=== PATIENT | male | born 1980 | race Caucasian/White ===

== ENCOUNTER 2019-09-17 21:35 | Emergency (ER) | payer SELFPAY ==
[2019-09-17 21:56] LABS: ABSOLUTE BASOPHILS # (AUTO) 0.1 10^3/uL (0.0-0.2); ABSOLUTE LYMPHOCYTES (AUTO) 0.9 10^3/uL (0.5-4.7); ABSOLUTE MONOCYTES (AUTO) 0.8 10^3/uL (0.1-1.4); BASOPHILS % (AUTO) 0.6 % (0-2); HEMATOCRIT 37.8 % (37.9-51.0); HEMOGLOBIN 12.9 g/dL (13.5-17.0); LYMPHOCYTES % (AUTO) 6.3 % (13-45); MEAN CORPUSCULAR HEMOGLOBIN 32.1 pg (27.0-33.4); MEAN CORPUSCULAR HGB CONC 34.2 g/dL (32.0-36.0); MEAN CORPUSCULAR VOLUME 94 fl (80-97); MONOCYTES % (AUTO) 5.9 % (3-13); PLATELET COUNT 319 10^3/uL (150-450); RED BLOOD COUNT 4.03 10^6/uL (4.35-5.55); RED CELL DISTRIBUTION WIDTH 13.6 % (11.5-14.0); SEGMENTED NEUTROPHILS % (AUTO) 87.2 % (42-78); TOTAL CELLS COUNTED % (AUTO) 100 %; WHITE BLOOD COUNT 13.8 10^3/uL (4.0-10.5)
[2019-09-17] MEDS ORDERED: NORMAL SALINE 1000 ML 1,000 ML IV ONE (22:02)
[2019-09-17 22:08] LABS: ALBUMIN 5.1 g/dL (3.5-5.0); ALKALINE PHOSPHATASE 87 U/L (38-126); ANION GAP 18 (5-19); ASPARTATE AMINO TRANSFERASE 39 U/L (17-59); BILIRUBIN,TOTAL 0.6 mg/dL (0.2-1.3); BLOOD UREA NITROGEN 33 mg/dL (7-20); CARBON DIOXIDE 18 mmol/L (22-30); CHLORIDE 106 mmol/L (98-107); GLUCOSE 107 mg/dL (75-110); POTASSIUM 3.8 mmol/L (3.6-5.0); TOTAL PROTEIN 8.3 g/dL (6.3-8.2)
[2019-09-17 22:17] LABS: ALCOHOL < 10 mg/dL (NONE DETECTED)
--- NOTE | 2019-09-17 23:34 | RADIOLOGY REPORT (SQ) ---
CLINICAL INDICATION: ams. TECHNIQUE: A single portable AP view was obtained of the chest at 2317 hours. COMPARISON: None. FINDINGS: The cardiomediastinal silhouette is normal. The lungs are grossly clear. No evidence of effusion or pneumothorax. The visualized bones are unremarkable. Lungs of low volume IMPRESSION: No evidence of active intrathoracic disease.
--- NOTE | 2019-09-17 23:36 | RADIOLOGY REPORT (SQ) ---
INDICATION: ams. Mental status change COMPARISON: None CORRELATION: None TECHNIQUE: Noncontrast spiral axial CT images were obtained from the skull base to vertex. This exam was performed according to our departmental dose-optimization program, which includes automated exposure control, adjustment of the mA and/or kV according to patient size and/or use of iterative reconstruction techniques. FINDINGS: There is no evidence of acute intracranial hemorrhage, midline shift, mass effect or mass lesion. Abernathy-white differentiation is normal. There is no evidence of acute large territory infarct. Ventricles and extracerebral spaces are within normal limits, for age. The visualized paranasal sinuses are grossly clear. The orbits and eyeballs are unremarkable. The mastoid air cells are clear. Skull base and calvarium appear intact. IMPRESSION: No acute intracranial process is identified. The cause of the patient's mental status change is not identified on this examination.
[2019-09-17 23:58] LABS: APPEARANCE,URINE CLEAR; BILIRUBIN,URINE NEGATIVE (NEGATIVE); COLOR,URINE YELLOW; GLUCOSE, URINE NEGATIVE (NEGATIVE); KETONES,URINE NEGATIVE (NEGATIVE); LEUKOCYTE ESTERASE,URINE NEGATIVE (NEGATIVE); NITRITE,URINE NEGATIVE (NEGATIVE); PROTEIN,URINE 30 mg/dL (NEGATIVE); URINE SPECIFIC GRAVITY 1.015; UROBILINOGEN,URINE NEGATIVE mg/dL (<2.0)
--- NOTE | 2019-09-18 | ER Document Report ---
Entered by SAMUEL SUN SCRIBE 09/17/19 1298 Acting as scribe for:ROBERTO GEORGE IV, MD ED General - General Chief Complaint: Altered Mental Status Stated Complaint: POSSIBLE SYNCOPE Time Seen by Provider: 09/17/19 21:42 Mode of Arrival: Medic Information source: Emergency Med Personnel Cannot obtain history due to: Altered mental status Notes: This 39 year old male patient brought in by EMS presents to the ED today with complaints of altered mental status. Per ED nurse, [facility] was called because the patient was reportedly walking around and rolling on the ground. Upon EMS arrival, patient was exhibiting the same behavior and was nonverbal. HPI is limited, and PMHx/ROS are unobtainable due to the patient's medical condition. Past Medical History - General Cannot obtain history due to: Altered mental status - Social History Smoking Status: Unknown if Ever Smoked Family History: Reviewed & Not Pertinent Patient has homicidal ideation: - pt unable to complete Review of Systems - Review of Systems -: Yes ROS unobtainable due to patient's medical condition Physical Exam - Vital signs Vitals: Resp BP Pulse Ox 25 H 158/94 H 95 09/17/19 21:43 09/17/19 21:43 09/17/19 21:43 - General General appearance: Other - Appears disheveled In distress: None - HEENT Head: Normocephalic, Atraumatic Eyes: Normal Pupils: Dilated - Respiratory Respiratory status: No respiratory distress Chest status: Nontender Breath sounds: Normal Chest palpation: Normal - Cardiovascular Rhythm: Regular, Tachycardia Heart sounds: Normal auscultation Murmur: No Friction rub: No Gallop: None auscultated - Abdominal Inspection: Normal Distension: No distension Bowel sounds: Normal Tenderness: Nontender - Abdomen soft Organomegaly: No organomegaly - Back Back: Normal, Nontender - Extremities General upper extremity: Normal inspection General lower extremity: Normal inspection - Neurological [place] Coma Scale Eye Opening: To Voice [place] Coma Scale Verbal: None Natalya Coma Scale Motor: Obeys Commands [place] Coma Scale Total: 10 - Psychological Associated symptoms: Other - Nonverbal, smiles/laughs innappropriately, randomly stares into space - Skin Skin Temperature: Warm Skin Moisture: Dry Skin Color: Normal Course - Re-evaluation Re-evalutation: 09/18/19 06:33 Patient is now alert and oriented and verbal. Patient states he feels better this morning. Patient states he can call his mother to give him a ride home. Results of ED MSE discussed with patient. All questions were answered prior to discharge. Emergency signs and symptoms, reasons to return to the emergency de partment discussed with patient. - Vital Signs Vital signs: Temp Pulse Resp BP Pulse Ox 124 H 25 H 152/83 H 91 L 09/17/19 21:51 09/18/19 02:00 09/18/19 01:00 09/18/19 02:00 - Laboratory Result Diagrams: 09/17/19 21:44 09/17/19 21:44 Laboratory results interpreted by me: 09/17/19 09/17/19 09/17/19 21:44 21:44 21:45 WBC 13.8 H RBC 4.03 L Hgb 12.9 L Hct 37.8 L Lymph % (Auto) 6.3 L Absolute Neuts (auto) 12.0 H Seg Neutrophils % 87.2 H Carbon Dioxide 18 L BUN 33 H Creatinine 1.40 H Est GFR (MDRD) Non-Af 55 L POC Glucose 113 H Total Protein 8.3 H Albumin 5.1 H Urine Protein 09/17/19 23:25 WBC RBC Hgb Hct Lymph % (Auto) Absolute Neuts (auto) Seg Neutrophils % Carbon Dioxide BUN Creatinine Est GFR (MDRD) Non-Af POC Glucose Total Protein Albumin Urine Protein 30 H - EKG Interpretation by Me Additional EKG results interpreted by me: 09/18/19 06:34 EKG obtained on 09/17/2019 at 2151 hrs. was interpreted by this MD. Findings: Sinus tachycardia, rate 127, P waves preceding QRS complexes, QRS complexes appear narrow, normal axis, there are no obvious patterns of ST segment elevat ion or depression present to suggest acute myocardial ischemia or infarction. Impression: Sinus tachycardia with nonspecific ST segments. Discharge - Discharge Clinical Impression: Transient alteration of awareness Condition: Stable Disposition: HOME, SELF-CARE Additional Instructions: Return to the Emergency Department without delay if any worse. HOME CARE INSTRUCTIONS & INFORMATION: Thank you for choosing us for your medical needs. We hope you're satisfied with the care you received. After you leave, you must properly care for your problem and, at the same time, observe its progress. Any condition can change. Some illnesses can change rapidly over hours or days. If your condition worsens, return to the Emergency Department or see your physician promptly. ABOUT YOUR X-RAYS AND EKG'S: If you had an EKG or X-rays taken, they have been read by the Emergency Physician. The X-rays and EKG's will also be read by a Radiologist or Biomedical Scientist within 24 hours. If discrepancies are noted, you will be notified by telephone. Please be certain the ED has a correct telephone number & address where you can be reached. Also, realize that some fractures or abnormalities do not show up on initial X-rays. If your symptoms continue, see your physician. ABOUT YOUR LABORATORY TEST: If you had laboratory tests, the results have been reviewed by the Emergency Physician. Some test results (for example cultures) may not be available for several days. You will be contacted if any test result shows you need additional treatment. Please be certain the ED has a correct telephone number and address where you can be reached. ABOUT YOUR MEDICATIONS: You will receive instructions on how to take your medicine on the prescription label you receive. Additional information may be provided by the Pharmacy. If you have questions afterwards, call the ED for clarification or further instructions. Some prescribed medications may cause drowsiness. Do not perform tasks such as driving a car or operating machinery without consulting your Pharmacist. If you feel you need a refill of pain medication, your condition will need re-evaluation. Please do not call for a refill of any medication. ABOUT YOUR SIGNATURE: Signature of this document acknowledges to followin. Understanding that you received emergency treatment and that you may be released before al medical problems are known or treated. Please be certain the ED has a correct phone number & address where you can be reached. 2. Acknowledgement that you will arrange for follow-up care as recommended. 3. Authorization for the Emergency Physician to provide information to your follow-up Physician in order to maximize your care. AT ANY TIME, IF YOUR SYMPTOMS CHANGE SIGNIFICANTLY OR WORSEN OR YOU DEVELOP NEW SYMPTOMS, RETURN TO THE EMERGENCY DEPARTMENT IMMEDIATELY FOR RE-EVALUATION. OUR GOAL IS TO PROVIDE EXCELLENT MEDICAL CARE! WE HOPE THAT WE HAVE MET YOUR EXPECTATIONS DURING YOUR EMERGENCY DEPARTMENT VISIT AND THAT YOU FEEL YOU HAVE RECEIVED EXCELLENT CARE! Referrals: ERNA BENAVIDEZ MD [HONORARY] - Follow up as needed I personally performed the services described in the documentation, reviewed and edited the documentation which was dictated to the scribe in my presence, and it accurately records my words and actions.
[2019-09-18 00:08] LABS: URINE AMPHETAMINES SCREEN NEGATIVE; URINE BARBITURATES SCREEN NEGATIVE; URINE BENZODIAZEPINES SCREEN NEGATIVE; URINE COCAINE SCREEN NEGATIVE; URINE MARIJUANA (THC) SCREEN NEGATIVE; URINE METHADONE SCREEN NEGATIVE; URINE PHENCYCLIDINE SCREEN NEGATIVE
[2019-09-18] MEDS ORDERED: HALOPERIDOL LACTATE INJ 5 MG/1 ML VIAL IM ONE (03:15)
[2019-09-18] MEDS ORDERED: LORAZEPAM INJ 2 MG/1 ML VIAL IM ONE (03:21)
[2019-09-18] MEDS: LORAZEPAM INJ 2 MG/1 ML VIAL IV ONE ×2 (03:37→03:38)
--- NOTE | 2019-09-18 07:56 | EKG REPORT ---
SEVERITY:- BORDERLINE ECG - SINUS TACHYCARDIA PROBABLE LEFT ATRIAL ABNORMALITY : Confirmed by: Shamir Thompson 18-Sep-2019 07:55:47
--- NOTE | 2019-09-18 11:19 | ER Document Report ---
Doctor's Note Notes: 09/18/19 11:18 The patient is well known to me from [place]. The patient is now sobered up walking around the department. The prior shift physician was going to discharge him but they felt that he was not steady on his feet yet. He is now up walking around he is being very disruptive. A ride is coming for him from [facility]. We will discharge him waiting for his ride.
[2019-09-18] MEDS ORDERED: LORAZEPAM 1 MG TABLET PO ONE (11:33)
[2019-09-18] MEDS ORDERED: HALOPERIDOL 5 MG TABLET PO ONE (11:33)
--- NOTE | 2019-09-18 12:05 | ER Document Report ---
Doctor's Note Notes: 09/18/19 12:02 I was asked to evaluate the patient again. [id number] evaluation the patient was able to answer his location he was able to get the date he got the day and the year correct he initially said July for the month but then corrected to August. He knew the president was Jay Villegas. We spoke about where he was from since I am very familiar with him. He is able to answer the questions right. This parents initially had set him up with a place to live down here but things did not go well. He states he has been drinking and popping Klonopin's. The patient has a heavy accent and has some tangential speech due to likely mental illness. I spoke with him at length this is very similar baseline to what have seen in the past. I asked if he wanted any kind of detox treatment. He declined he is wanting to leave. They have been stopping him from leaving but when he is able to answer my orientation questions correctly. The patient's baseline with underlying mental illness and polysubstance abuse is poor to begin with. However if he is able to answer orientation questions does not want any kind of detox. He may be bizarre but he seems to have the capacity on my exam to make decisions. I will not hold him any further.
[2019-09-18 12:35] VITALS: BP 129/94
== END 2019-09-18 12:39 | disposition home or self-care (01) ==
LOC: ER 21:35
DX: R40.4 Transient alteration of awareness (principal)
CPT/HCPCS: 93005; 99285; 96372; 96360; 96361; 36415; 82962; 80307 ×2; 83735; 85025; 80053; 81001; 71045; 70450; 93010; J1630; J2060; J7030